=== PATIENT | female | born 1970 | race Asian ===

== ENCOUNTER 2025-07-17 13:01 | Emergency (ER) | payer SELFPAY ==
[2025-07-17] VITALS (7 sets, daily range): BP systolic 114–151; BP diastolic 75–91
[2025-07-17 13:33] LABS: Hematocrit 40.7 % (37.0-47.0); Hemoglobin 13.9 g/dL (12.0-16.0); Mean Corp Hgb Conc. 34.2 g/dL (33.0-37.0); Mean Corpuscular Volume 91.7 fL (81.0-99.0); Nucleated Red Blood Cells % 0 %; Platelet Count 201 10^3/uL (130-400); Red Cell Dist. Width 13.2 % (11.5-14.5)
[2025-07-17 14:14] LABS: ALT (SGPT) 18 U/L (0-35); AST (SGOT) 30 U/L (14-36); Albumin 4.4 g/dl (3.5-5.0); Alkaline Phosphatase 64 U/L (38-126); Blood Urea Nitrogen 15 mg/dl (7-17); Calcium 9.4 mg/dl (8.4-10.2); Carbon Dioxide 28 mmol/L (22-30); Chloride 107 mmol/L (98-107); Glucose 98 mg/dl (70-99); Potassium 4.5 mmol/L (3.5-5.1); Sodium 138 mmol/L (135-145); Total Protein 7.8 g/dl (6.3-8.2); eGFR > 60.00
[2025-07-17 14:22] LABS: APTT 23.1 Sec (23.4-35.0)
[2025-07-17 14:24] LABS: D-Dimer 2.34 ug/mlFEU (0.00-0.50)
[2025-07-17 14:26] LABS: Troponin I < 0.012 ng/ml
[2025-07-17 19:43] LABS: Troponin I < 0.012 ng/ml
[2025-07-17] MEDS: ELIQUIS 5 MG PO (20:13)
--- NOTE | 2025-07-17 21:18 | ED.GENMED ---
History of Present Illness
General
Chief Complaint: Cardiac Symptoms
Source: patient
Exam Limitations: none
Time Seen by Provider: 07/17/25 13:56
Nursing documentation reviewed up to this point in time: agreed with
History of Present Illness
History of Present Illness:
Patient is a 54-year-old female with past history of PE and DVT who presents to the emergency department today via EMS with concerns of chest pain. Patient is very tearful on inital evaluation. They came directly form the vet where they
unfortunately had to put their dog down. Patients daughter states that after the dog passed, the patient complained of central chest pain and syncopized. She described it as a 'pressure' which is worse with deep inspiration. No diophoresis or
vomiting. Patient was given nitro and ASA on way to ED and states pain has improved.
No recent fevers, chills, productive cough.
Patient has a past hx of PE and DVT. She is supposed to be on lifelong Eliquis however states that she has no taken this for about 1 month as her insurance was cancelled however now is back and functional.
Review of Systems
Review of Systems
Allergies reviewed?: Yes
All Other Systems: ROS reviewed and negative except as documented in HPI and ROS
Phy Exam
Physical Exam
Physical Exam:
Vitals: Patient's vital signs are stable. Afebrile
General: Patient is tearful on initial exam
Skin: Warm and dry, no rashes or lesions
Head: Normocephalic, atraumatic
Eyes: Sclera nonicteric.
Throat: Protecting airway
Neck: Normal ROM, no cervical spine tenderness, no meningismus
Cardiac: Regular rate and rhythm, no murmurs. No reproducible chest wall tenderness.
Pulm: Normal respiratory effort, no wheezes, rales, rhonchi heard on exam
.
Abdomen: Abdomen soft and nontender.
Extremities: Bilateral nonpitting edema of bilateral lower extremities. Small subcutaneous, firm palpable mass in left medial distal calf. No tenderness or overlying erythema or warmth. 2+ b/l DP pulses.
Neuro: AAOx3. Grossly intact.
Psychiatric: Normal affect.
Course
Orders/Labs/Results
Orders:
Orders
07/17/25 13:02
Electrocardiogram (*1) Urgent
Reason for Study: Chest Pain
EKG- Treatment ONCE
CR Chest - 2 Views Urgent
Comment:
Reason For Exam: chest pain
07/17/25 13:12
Complete Blood Count/With Diff Urgent
D-Dimer Urgent
Comment: ADD ON
PTT Urgent
07/17/25 13:56
Comprehensive Metabolic Panel Urgent
Troponin I Urgent
07/17/25 14:13
Add On- LAB Urgent
Tests Added?: dimer
US Legs, Bilateral [US Periph Venous LOWER Ext Vince] Urgent
Comment: hx DVT not compliant with eliquis;
Reason For Exam: palpable knot L calf, RLE swelling
07/17/25 14:50
CT Chest PE Study Urgent
Comment: hx PE noncompliant with eliquis
Reason For Exam: pleuritic chest pain
07/17/25 18:57
Electrocardiogram (*1) Urgent
Reason for Study: Chest Pain
EKG- Treatment ONCE
07/17/25 19:07
Troponin I Urgent
07/17/25 19:47
Apixaban [Eliquis] 5 mg PO NOW STA
Abnormal Lab Results
07/17/25
13:12
WBC 4.1 L 10^3/uL
(4.8-10.8)
MCH 31.3 H pg
(27.0-31.0)
Monocytes % 14.6 H %
(1.7-9.3)
APTT 23.1 L Sec
(23.4-35.0)
D-Dimer 2.34 H ug/mlFEU
(0.00-0.50)
07/17/25 13:12
07/17/25 13:56
Vital Signs
Initial and Last Documented VS:
Initial Vital Signs
Temp Pulse Resp Pulse Ox
98.0 F 76 20 99
07/17/25 13:03 07/17/25 13:03 07/17/25 13:03 07/17/25 13:03
Last Documented Vital Signs
Temp Pulse Resp BP Pulse Ox
97.7 F 64 18 135/84 100
07/17/25 20:24 07/17/25 20:24 07/17/25 20:24 07/17/25 20:24 07/17/25 21:20
MDM/Problems Addressed
Differential Diagnosis Includes:
Not limited to: panic attack, pericarditis, pulmonary embolism, acute coronary syndrome, superficial thromboplebitis, etc
MDM/Problems Addressed:
54 year-old female with history as documented presenting with acute onset chest pain after her dog at the vet earlier today. No exertional component, however mild pleuritic component to pain. Symptoms have resolved by arrival to
emergency department.
She has history of DVT and PE and has been noncompliant with Eliquis over the past month due to insurance reasons.
Vitals and physical exam as above.
Initial EKG without findings of ischemia. Serial troponins negative x 2. Basic labs unremarkable. Her d-dimer was elevated at 2.34. CTA chest shows no evidence of acute central pulmonary embolism. There were some limitations in study due to
respiratory motion � patient is aware that we were unable to completely visualize all segmental arteries. Incidental findings of pulmonary nodules noted and discussed with patient.
No evidence of DVT on bilateral LE ultrasound. Small soft tissue mass noted and discussed with patient to have repeat imaging outpatient.
Ultimately � work up in ED negative for acute cardio/pulmonary emergent process. While PE study somewhat limited � patients symptoms have improved and her vital signs are normal. Given no evidence of DVT � do not feel symptoms reflect pulmonary
embolism. Do not suspect acute coronary syndrome. Suspect symptoms likely secondary to emotional/stress response.
Will start patient back on Eliquis and send prescription for month supply as she states her insurance has started again.
Advised close follow-up w/ hematology and cardiology outpatient. Return precautions discussed. Patient comfortable with plan.
Chronic conditions affecting care:
PE and DVT
Acute Exacerbation and/or Progression of Chronic Illness:
N/A
*Radiology
Radiology exam reviewed: radiology read reviewed
*Pulse Oximetry
SaO2: 100
Oxygen Mode of Delivery: Room air
Patient hypoxic: no
*EKG
Interpreted by ED Provider?: Yes
EKG Intrepretation Date: 07/17/25
Interpretation: abnormal
Comparison EKG: no comparison EKG present
Heart Rate: 71
Rate: normal
Rhythm: sinus
Sheldon: left axis deviation
Interval: normal QT interval
QRS Pattern: normal QRS
Ischemia: no ischemia
*Area Counselor Interpretation
Rate: normal
Interpretation: normal
Heart Rate: 78
Rhythm: sinus
*Critical Care Note
Total Time (30-74mins, 75-104mins- exclusive of procedures): Not Applicable
ED Attending Note
-
Portions of this chart may have been created with voice recognition software.� Occasional wrong word or��sound alike� substitutions may have occurred due to the inherent limitations of voice recognition software.
Discharge Plan
Departure
Patient Disposition: Home (Routine Discharge)
Date of Disposition: 07/17/25
Time of Disposition: 19:50
Patient with high blood pressure during this ER visit?: Yes
Discharge Problem:
Chest pain, Panic attack
Instructions: Chest Pain (DC), BLOOD PRESSURE
Prescriptions:
New
Eliquis 5 mg tablet
5 mg PO BID Qty: 60 0RF
Referrals:
NONE,* [Family Provider, Internal Medicine]
Activity Restrictions/Additional Instructions:
RETURN TO THE EMERGENCY DEPARTMENT WITH ANY SEVERE CHEST PAIN OR SHORTNESS OF BREATH, SWELLING OR PAIN OF LOWER EXTREMITIES, FEVER, SIGNS OF INFECTION OF LEFT LOWER LEG, WORSENING IN CURRENT SYMPTOMS, OR ANY OTHER CONCERNS
- As discussed�your ultrasound showed no evidence of a blood clot in your legs. However�there was a small soft tissue mass noted in the left calf. Please ensure this is followed up with an outpatient MRI. Monitor for signs of infection.
- It is very important that you resume your Eliquis prescription. I sent a prescription to your pharmacy. 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
- Follow-up with hematology and primary care for further evaluation/management and to ensure that your symptoms are improving
Monitor your symptoms closely and return to the emergency department with any acute worsening/new symptoms or any other
Interventions
Interventions:
*General Assessment Last Done: 07/17/25 13:03
*Nursing Disposition Last Done: 07/17/25 20:39
ED- Pulmonary Assessment Last Done: 07/17/25 13:27
ED- Cardiac Assessment Last Done: 07/17/25 13:27
Discharge Date and Time
Discharge Date/Time: 07/17/25 20:41
Print Language: CHINESE
== END 2025-07-17 20:41 | disposition home or self-care (01) ==
LOC: EMR 13:01
PROVIDERS: Emergency Medicine; Physician Assistant; EMERGENCY PHYSICIAN Emergency Medicine
DX: R07.89 Other chest pain (principal); F41.0 Panic disorder [episodic paroxysmal anxiety]; R22.43 Localized swelling, mass and lump, lower limb, bilateral; Z86.711 Personal history of pulmonary embolism; Z86.718 Personal history of other venous thrombosis and embolism; Z79.01 Long term (current) use of anticoagulants; Z91.148 Patient's other noncompliance with medication regimen for other reason
CPT/HCPCS: 99285; 71046; 71275; 80053; 84484; 85025; 85379; 85730; 93005; 93970; Q9967